=== PATIENT | female | born 1970 | race Caucasian/White ===

== ENCOUNTER 2020-04-23 19:14 | Observation (INO) ==
[2020-04-23] MEDS ORDERED: ASPIRIN 325 MG TABLET PO STA ×2 (19:52→20:41)
[2020-04-23 20:21] LABS: Alanine Aminotransferase 26 U/L (13-56); Albumin 3.8 G/DL (3.4-5.0); Alkaline Phosphatase 78 U/L (45-117); Aspartate Amino Transferase 27 U/L (0-37); Bilirubin,Total < 0.39 MG/DL (0.2-1.0); Blood Urea Nitrogen 12 MG/DL (7-18); Carbon Dioxide 24 MMOL/L (21-32); Chloride 108 MMOL/L (98-107); Estimated Glom Filtration Rate 99 ML/MIN; Glucose 97 MG/DL (74-106); Osmolality,Calculated 274.7 MOS/KG (273-304); Potassium 3.7 MMOL/L (3.5-5.1); Sodium 138 MMOL/L (136-145); Total Protein 7.5 G/DL (6.4-8.3)
[2020-04-23] MEDS ORDERED: ACETAMINOPHEN 325 MG TABLET PO PRN (20:41)
[2020-04-23] MEDS ORDERED: ONDANSETRON 4 MG/2 ML VIAL IV PRN (20:41)
[2020-04-23 20:45] LABS: Bacteria,Urine Occasional /HPF (Few); Bilirubin,Urine Negative (Negative); Blood, Urine Small mg/dL (Negative); Glucose,Urine (UA) Negative (Negative); Ketones,Urine Negative (Negative); Mucus,Urine Occasional /LPF (Occasional); Nitrite,Urine Negative (Negative); Protein,Urine Negative; RBC,Urine 2 /HPF (0-4); Squamous Epithelial Cell,Urine Occasional /HPF (0-10); Urine Appearance CLEAR (Clear); Urine Color Yellow (Yellow); Urine Specific Gravity 1.016 (1.001-1.035); Urine Urobilinogen < 2.0 EU/DL (0.2-1.0); WBC,Urine 25 /HPF (0-6)
[2020-04-23 20:48] LABS: Barbiturates Screen,Urine Negative (Negative); Benzodiazepines Screen,Urine Negative (Negative); Cannabinoid Screen,Urine Negative (Negative); Opiate Screen,Urine Negative (Negative); Phencyclidine Screen,Urine Negative (Negative)
[2020-04-23] MEDS ORDERED: NITROFURANTOIN MACRO/MONO 100 MG CAPSULE PO ONE (20:53)
[2020-04-24 04:31] LABS: Basophils % 0.5 % (0.0-0.8); Eosinophils # 0.1 10*3/uL (0.0-0.87); Eosinophils % 3.6 % (0.00-10.9); Hematocrit 41.3 VOL% (35.7-47.0); Hemoglobin 13.8 GM/DL (12.0-16.0); Lymphocytes # 1.1 10*3/uL (1.4-4.0); Lymphocytes % 27.7 % (21.3-54.2); Mean Corpuscular HGB Conc 33.4 GM/DL (32-36); Mean Platelet Volume 11.4 FL (9.6-12.0); Monocytes # 0.6 10*3/uL (0.11-0.8); Monocytes % 15.1 % (1.7-12.7); Neutrophils % 53.1 % (38.7-73.9); Platelet Count 181 T/CUMM (130-400); Red Blood Count 4.86 MC/CUMM (3.8-5.5); Red Cell Distribution Width 12.6 % (9.3-17.3); White Blood Count 3.9 T/CUMM (4-12)
[2020-04-24 04:56] LABS: Albumin 3.9 G/DL (3.4-5.0); Bilirubin,Total 0.6 MG/DL (0.2-1.0); Osmolality,Calculated 277.4 MOS/KG (273-304); Potassium 3.8 MMOL/L (3.5-5.1); Total Protein 7.5 G/DL (6.4-8.3)
[2020-04-24] MEDS ORDERED: ASPIRIN EC 81 MG TABLET PO SCH (09:00)
[2020-04-24] MEDS ORDERED: amLODIPine 5 MG TABLET PO SCH (09:00)
[2020-04-24] MEDS ORDERED: PANTOPRAZOLE 40 MG TABLET PO SCH (09:00)
[2020-04-24] MEDS ORDERED: NITROFURANTOIN MACRO/MONO 100 MG CAPSULE PO SCH (10:14)
[2020-04-24 10:47] VITALS: BP 125/82
== END 2020-04-24 11:04 | disposition home or self-care (01) ==
LOC: EDBD → EDUNIT# → N.EDINP 19:14 → N.ED 19:14 → N.EDINP 04-24 11:04
PROVIDERS: ADMIT Family Medicine; ATTEND Family Medicine

== ENCOUNTER 2020-05-01 11:41 | Inpatient (IN) ==
[2020-05-01] MEDS ORDERED: ONDANSETRON 4 MG/2 ML VIAL IV PRN (14:31)
[2020-05-01 16:22] LABS: Basophils % 0.1 % (0.0-0.8); Hematocrit 39.9 VOL% (35.7-47.0); Hemoglobin 13.6 GM/DL (12.0-16.0); Immature Granulocytes % 0.7 %; Immature Granulocytes Absolute 0.05 #; Lymphocytes # 0.9 10*3/uL (1.4-4.0); Lymphocytes % 12.1 % (21.3-54.2); Mean Corpuscular HGB Conc 34.1 GM/DL (32-36); Mean Corpuscular Volume 82.1 FL (87-102); Mean Platelet Volume 10.8 FL (9.6-12.0); Monocytes % 3.7 % (1.7-12.7); Neutrophils % 83.4 % (38.7-73.9); Platelet Count 222 T/CUMM (130-400); Red Blood Count 4.86 MC/CUMM (3.8-5.5); Red Cell Distribution Width 12.6 % (9.3-17.3); White Blood Count 7.6 T/CUMM (4-12)
[2020-05-01 16:38] LABS: Alanine Aminotransferase 17 U/L (13-56); Albumin 2.9 G/DL (3.4-5.0); Alkaline Phosphatase 69 U/L (45-117); Aspartate Amino Transferase 28 U/L (0-37); Bilirubin,Total < 0.39 MG/DL (0.2-1.0); Blood Urea Nitrogen 6 MG/DL (7-18); Calcium 8.6 MG/DL (8.5-10.1); Estimated Glom Filtration Rate 130 ML/MIN; Glucose 122 MG/DL (74-106); Osmolality,Calculated 271.8 MOS/KG (273-304); PT Patient Result 11.2 SECS (9.8-11.9)
[2020-05-01] MEDS: FAMOTIDINE 20 MG TABLET PO SCH (17:41)
[2020-05-01] MEDS ORDERED: DEXAMETHASONE 4 MG/1 ML VIAL IV ONE (20:07)
[2020-05-01] MEDS: ACETAMINOPHEN 325 MG TABLET PO PRN (20:30)
[2020-05-01] MEDS: ENOXAPARIN 40 MG/0.4 ML SYRINGE SUBCUT SCH (20:30)
[2020-05-01] MEDS: DOCUSATE SODIUM 100 MG CAPSULE PO SCH (20:30)
[2020-05-01] MEDS: ASCORBIC ACID 500 MG TABLET PO SCH (20:30)
[2020-05-01] MEDS: SODIUM CHLORIDE 0.9% 1,000 ML IV SCH (21:33)
[2020-05-02] MEDS: ALBUTEROL INHALER 18 GM INH SCH ×4 (01:35→18:10)
[2020-05-02] MEDS ORDERED: REMDESIVIR 200 MG in SODIUM CHLORIDE 0.9% 210 ML IV ONE (08:00)
[2020-05-02] MEDS: DOCUSATE SODIUM 100 MG CAPSULE PO SCH ×2 (09:03→20:00)
[2020-05-02] MEDS: PANTOPRAZOLE 40 MG TABLET PO SCH (09:03)
[2020-05-02] MEDS: SODIUM CHLORIDE 0.9% 1,000 ML IV SCH ×2 (09:03→22:39)
[2020-05-02] MEDS: FAMOTIDINE 20 MG TABLET PO SCH (09:03)
[2020-05-02] MEDS: ASPIRIN EC 81 MG TABLET PO SCH (09:03)
[2020-05-02] MEDS: ASCORBIC ACID 500 MG TABLET PO SCH ×2 (09:03→20:00)
[2020-05-02] MEDS: ESCITALOPRAM 10 MG TABLET PO SCH (09:03)
[2020-05-02] MEDS: DEXAMETHASONE 4 MG/1 ML VIAL IV SCH (09:03)
[2020-05-02] MEDS: amLODIPine 5 MG TABLET PO SCH (09:03)
[2020-05-02] MEDS ORDERED: SODIUM CHLORIDE 0.9% 1,000 ML IV PRN (14:18)
[2020-05-02] MEDS: ENOXAPARIN 40 MG/0.4 ML SYRINGE SUBCUT SCH (20:00)
[2020-05-02] MEDS: ALPRAZolam 0.5 MG TABLET PO PRN (20:00)
[2020-05-02] MEDS: ACETAMINOPHEN 325 MG TABLET PO PRN (20:00)
[2020-05-03] MEDS: ALBUTEROL INHALER 18 GM INH SCH ×4 (04:25→19:08)
[2020-05-03 06:03] LABS: Basophils % 0.1 % (0.0-0.8); Hemoglobin 12.5 GM/DL (12.0-16.0); Immature Granulocytes % 1.3 %; Immature Granulocytes Absolute 0.09 #; Lymphocytes % 15.4 % (21.3-54.2); Mean Corpuscular HGB Conc 32.9 GM/DL (32-36); Mean Corpuscular Volume 84.3 FL (87-102); Mean Platelet Volume 11.7 FL (9.6-12.0); Monocytes % 4.6 % (1.7-12.7); Neutrophils % 78.6 % (38.7-73.9); Platelet Count 273 T/CUMM (130-400); Red Blood Count 4.51 MC/CUMM (3.8-5.5); Red Cell Distribution Width 12.5 % (9.3-17.3); White Blood Count 6.7 T/CUMM (4-12)
[2020-05-03 06:20] LABS: Alanine Aminotransferase 26 U/L (13-56); Albumin 2.5 G/DL (3.4-5.0); Alkaline Phosphatase 63 U/L (45-117); Aspartate Amino Transferase 26 U/L (0-37); Bilirubin,Total < 0.39 MG/DL (0.2-1.0); Blood Urea Nitrogen 11 MG/DL (7-18); Calcium 8.7 MG/DL (8.5-10.1); Estimated Glom Filtration Rate 148 ML/MIN; Glucose 131 MG/DL (74-106); Osmolality,Calculated 279.4 MOS/KG (273-304); Total Protein 6.3 G/DL (6.4-8.3)
[2020-05-03 06:34] LABS: Hypochromasia 1+; Lymphocytes 14 % (20-55); Microcytosis Slight; Ovalocytes Slight; Platelet Estimate Adequate; Segmented Neutrophils 83 % (50-85); Total Cells Counted 100
[2020-05-03] MEDS: DEXAMETHASONE 4 MG/1 ML VIAL IV SCH (08:16)
[2020-05-03] MEDS: amLODIPine 5 MG TABLET PO SCH (08:17)
[2020-05-03] MEDS: PANTOPRAZOLE 40 MG TABLET PO SCH (08:17)
[2020-05-03] MEDS: ESCITALOPRAM 10 MG TABLET PO SCH (08:17)
[2020-05-03] MEDS: ASCORBIC ACID 500 MG TABLET PO SCH ×2 (08:17→20:27)
[2020-05-03] MEDS: FAMOTIDINE 20 MG TABLET PO SCH (08:17)
[2020-05-03] MEDS: ASPIRIN EC 81 MG TABLET PO SCH (08:17)
[2020-05-03] MEDS: DOCUSATE SODIUM 100 MG CAPSULE PO SCH ×2 (08:17→20:27)
[2020-05-03] MEDS: REMDESIVIR 100 MG in SODIUM CHLORIDE 0.9% 100 ML IV SCH (09:37)
[2020-05-03] MEDS: SODIUM CHLORIDE 0.9% 1,000 ML IV SCH (15:51)
[2020-05-03] MEDS ORDERED: traMADol 50 MG TABLET PO PRN (16:54)
[2020-05-03] MEDS: ENOXAPARIN 40 MG/0.4 ML SYRINGE SUBCUT SCH (20:27)
[2020-05-04] MEDS: ALBUTEROL INHALER 18 GM INH SCH ×4 (00:49→20:32)
[2020-05-04] MEDS: SODIUM CHLORIDE 0.9% 1,000 ML IV SCH ×2 (02:49→20:31)
[2020-05-04 05:23] LABS: Basophils % 0.1 % (0.0-0.8); Hematocrit 37.8 VOL% (35.7-47.0); Hemoglobin 12.4 GM/DL (12.0-16.0); Immature Granulocytes % 4.6 %; Immature Granulocytes Absolute 0.36 #; Lymphocytes # 1.1 10*3/uL (1.4-4.0); Lymphocytes % 13.9 % (21.3-54.2); Mean Corpuscular HGB Conc 32.8 GM/DL (32-36); Mean Corpuscular Volume 84.4 FL (87-102); Mean Platelet Volume 11.5 FL (9.6-12.0); Monocytes % 7.3 % (1.7-12.7); NRBC # 0.02 10*3/uL; Neutrophils % 74.1 % (38.7-73.9); Platelet Count 286 T/CUMM (130-400); Red Blood Count 4.48 MC/CUMM (3.8-5.5); Red Cell Distribution Width 12.6 % (9.3-17.3); White Blood Count 7.8 T/CUMM (4-12)
[2020-05-04 05:48] LABS: Calcium 8.3 MG/DL (8.5-10.1); Osmolality,Calculated 282.3 MOS/KG (273-304)
[2020-05-04 05:54] LABS: Lymphocytes 12 % (20-55); Segmented Neutrophils 80 % (50-85); Total Cells Counted 100
[2020-05-04 05:55] LABS: Platelet Estimate Normal
[2020-05-04] MEDS: DEXAMETHASONE 4 MG/1 ML VIAL IV SCH (08:14)
[2020-05-04] MEDS: ESCITALOPRAM 10 MG TABLET PO SCH (08:14)
[2020-05-04] MEDS: DOCUSATE SODIUM 100 MG CAPSULE PO SCH ×2 (08:14→20:32)
[2020-05-04] MEDS: ASPIRIN EC 81 MG TABLET PO SCH (08:14)
[2020-05-04] MEDS: PANTOPRAZOLE 40 MG TABLET PO SCH (08:14)
[2020-05-04] MEDS: amLODIPine 5 MG TABLET PO SCH (08:14)
[2020-05-04] MEDS: ASCORBIC ACID 500 MG TABLET PO SCH ×2 (08:14→20:32)
[2020-05-04] MEDS: FAMOTIDINE 20 MG TABLET PO SCH (08:15)
[2020-05-04] MEDS: AZITHROMYCIN INJ 500 MG in SODIUM CHLORIDE 0.9% 250 ML IV SCH (08:21)
[2020-05-04] MEDS: REMDESIVIR 100 MG in SODIUM CHLORIDE 0.9% 100 ML IV SCH (10:07)
[2020-05-04] MEDS: ENOXAPARIN 40 MG/0.4 ML SYRINGE SUBCUT SCH (20:31)
[2020-05-05] MEDS: ALBUTEROL INHALER 18 GM INH SCH ×4 (00:41→21:28)
[2020-05-05] MEDS: SODIUM CHLORIDE 0.9% 1,000 ML IV SCH (04:00)
[2020-05-05 07:06] LABS: Basophils % 0.2 % (0.0-0.8); Hematocrit 37.1 VOL% (35.7-47.0); Hemoglobin 12.4 GM/DL (12.0-16.0); Immature Granulocytes % 6.5 %; Immature Granulocytes Absolute 0.57 #; Lymphocytes # 1.4 10*3/uL (1.4-4.0); Lymphocytes % 16.4 % (21.3-54.2); Mean Corpuscular HGB Conc 33.4 GM/DL (32-36); Mean Corpuscular Volume 83.4 FL (87-102); Monocytes % 10.4 % (1.7-12.7); NRBC # 0.05 10*3/uL; Neutrophils % 66.5 % (38.7-73.9); Platelet Count 315 T/CUMM (130-400); Red Blood Count 4.45 MC/CUMM (3.8-5.5); Red Cell Distribution Width 12.6 % (9.3-17.3); White Blood Count 8.7 T/CUMM (4-12)
[2020-05-05 07:29] LABS: Albumin 2.6 G/DL (3.4-5.0); Bilirubin,Total 0.4 MG/DL (0.2-1.0); Calcium 8.3 MG/DL (8.5-10.1); Osmolality,Calculated 278.4 MOS/KG (273-304)
[2020-05-05 08:42] LABS: Hypochromasia 1+; Lymphocytes 23 % (20-55); Segmented Neutrophils 72 % (50-85); Total Cells Counted 100
[2020-05-05 08:43] LABS: Microcytosis Slight
[2020-05-05 08:44] LABS: Platelet Estimate Normal
[2020-05-05] MEDS: ASPIRIN EC 81 MG TABLET PO SCH (09:12)
[2020-05-05] MEDS: AZITHROMYCIN INJ 500 MG in SODIUM CHLORIDE 0.9% 250 ML IV SCH (09:17)
[2020-05-05] MEDS: DEXAMETHASONE 4 MG/1 ML VIAL IV SCH (09:17)
[2020-05-05] MEDS: DOCUSATE SODIUM 100 MG CAPSULE PO SCH ×2 (09:17→21:28)
[2020-05-05] MEDS: FAMOTIDINE 20 MG TABLET PO SCH (09:17)
[2020-05-05] MEDS: ASCORBIC ACID 500 MG TABLET PO SCH ×2 (09:17→21:28)
[2020-05-05] MEDS: PANTOPRAZOLE 40 MG TABLET PO SCH (09:17)
[2020-05-05] MEDS: ESCITALOPRAM 10 MG TABLET PO SCH (09:17)
[2020-05-05] MEDS: amLODIPine 5 MG TABLET PO SCH (09:17)
[2020-05-05] MEDS: REMDESIVIR 100 MG in SODIUM CHLORIDE 0.9% 100 ML IV SCH (12:09)
[2020-05-05] MEDS: ACETAMINOPHEN 325 MG TABLET PO PRN (12:09)
[2020-05-05] MEDS: ENOXAPARIN 40 MG/0.4 ML SYRINGE SUBCUT SCH (21:27)
[2020-05-05] MEDS: ALPRAZolam 0.5 MG TABLET PO PRN (21:28)
[2020-05-06] MEDS: SODIUM CHLORIDE 0.9% 1,000 ML IV SCH ×2 (01:37→16:45)
[2020-05-06] MEDS: ALBUTEROL INHALER 18 GM INH SCH ×3 (01:37→16:45)
[2020-05-06] MEDS: ALPRAZolam 0.5 MG TABLET PO PRN (01:37)
[2020-05-06 05:54] LABS: Basophils % 0.2 % (0.0-0.8); Hematocrit 39.4 VOL% (35.7-47.0); Immature Granulocytes % 6.2 %; Immature Granulocytes Absolute 0.58 #; Lymphocytes # 1.4 10*3/uL (1.4-4.0); Lymphocytes % 14.9 % (21.3-54.2); Mean Corpuscular Volume 83.8 FL (87-102); Mean Platelet Volume 11.2 FL (9.6-12.0); Monocytes % 7.2 % (1.7-12.7); NRBC # 0.03 10*3/uL; Neutrophils % 71.5 % (38.7-73.9); Platelet Count 324 T/CUMM (130-400); Red Cell Distribution Width 12.5 % (9.3-17.3); White Blood Count 9.4 T/CUMM (4-12)
[2020-05-06 06:23] LABS: Albumin 2.7 G/DL (3.4-5.0); Bilirubin,Total 0.5 MG/DL (0.2-1.0); Calcium 8.4 MG/DL (8.5-10.1); Osmolality,Calculated 276.5 MOS/KG (273-304)
[2020-05-06 07:36] LABS: Band Neutrophils 2 % (0-10); Lymphocytes 19 % (20-55); Platelet Estimate Normal; Segmented Neutrophils 70 % (50-85); Total Cells Counted 100
[2020-05-06 07:37] LABS: Anisocytosis 1+; Atypical Lymphocytes Few; Basophilic Stippling Slight; Polychromasia Slight
[2020-05-06] MEDS: ESCITALOPRAM 10 MG TABLET PO SCH (08:48)
[2020-05-06] MEDS: amLODIPine 5 MG TABLET PO SCH (08:49)
[2020-05-06] MEDS: ASCORBIC ACID 500 MG TABLET PO SCH (08:49)
[2020-05-06] MEDS: ASPIRIN EC 81 MG TABLET PO SCH (08:50)
[2020-05-06] MEDS: DOCUSATE SODIUM 100 MG CAPSULE PO SCH (08:50)
[2020-05-06] MEDS: PANTOPRAZOLE 40 MG TABLET PO SCH (08:50)
[2020-05-06] MEDS: FAMOTIDINE 20 MG TABLET PO SCH (08:51)
[2020-05-06] MEDS: AZITHROMYCIN INJ 500 MG in SODIUM CHLORIDE 0.9% 250 ML IV SCH (08:51)
[2020-05-06] MEDS: DEXAMETHASONE 4 MG/1 ML VIAL IV SCH (08:53)
[2020-05-06] MEDS: REMDESIVIR 100 MG in SODIUM CHLORIDE 0.9% 100 ML IV SCH (10:35)
[2020-05-06 16:02] VITALS: BP 108/72
== END 2020-05-06 16:00 | disposition home or self-care (01) | DRG 177 ==
LOC: N.2E 13:12 → INTOOBSV 13:12
PROVIDERS: ADMIT Family Medicine; ATTEND Family Medicine